=== PATIENT | male | born 2000 | race Caucasian/White ===

== ENCOUNTER 2025-01-02 10:39 | Emergency (ER) | payer SELFPAY ==
[2025-01-02] MEDS: diphenhydrAMINE 50 MG/ML SDV IVPUSH ONE (11:55)
[2025-01-02] MEDS: Lactated Ringers 1,000 ML IV ONE (12:01)
[2025-01-02] MEDS: Ketorolac 30 MG/ML SDV IVPUSH ONE (12:03)
== END 2025-01-02 13:10 | disposition home or self-care (01) ==
LOC: JD.ED 10:39
DX: G43.909 Migraine, unspecified, not intractable, without status migrainosus (principal); E86.0 Dehydration
CPT/HCPCS: 96374; 96375; 99283; J1200; J1885; J2765; J7120